=== PATIENT | female | born 1975 | race African-American/Black ===

== ENCOUNTER 2017-10-20 12:55 | Emergency (ER) | payer MEDICARE, MEDICAID ==
[~2017-10-20] VITALS: Ht 172.7 cm; Wt 85.0 kg
[~2017-10-20 12:55] MED LIST: ASPI-1158; BENAZEPRIL 5 MG PO; SIMV10TA2; SIMV20TA6 PO; TRAMADOL; [UNRECOGNIZED DRUG - CODE]
[2017-10-20] MEDS ORDERED: KETOROLAC 60MG/2ML VIAL IM ONE (14:30)
[2017-10-20 14:36] VITALS: BP 133/89
[2017-10-20 14:47] LABS: CLARITY URINE CLEAR (CLEAR); COLOR URINE YELLOW (YELLOW); KETONES URINE TRACE (NEGATIVE); LEUKOCYTE ESTERASE URINE NEGATIVE (NEGATIVE); NITRITE URINE NEGATIVE (NEGATIVE); OCCULT BLOOD URINE NEGATIVE (NEGATIVE); PH URINE 6.5 (4.5-8.0); PROTEIN URINE NEGATIVE (NEGATIVE); SPECIFIC GRAVITY URINE 1.026 (1.005-1.030); UROBILINOGEN URINE 0.2 E.U./dL (0.2-1.0)
== END 2017-10-20 15:22 | disposition home or self-care (01) ==
LOC: ER 13:18
DX: M54.5 Low back pain (principal); G89.29 Other chronic pain; I10 Essential (primary) hypertension; F12.10 Cannabis abuse, uncomplicated; Z79.82 Long term (current) use of aspirin
CPT/HCPCS: 81003; 81025; 96372; 99283; J1885

== ENCOUNTER 2017-10-24 09:20 | Emergency (ER) | payer MEDICARE, MEDICAID ==
[~2017-10-24] VITALS: Ht 167.6 cm; Wt 80.0 kg
[2017-10-24] MEDS ORDERED: KETOROLAC 60MG/2ML VIAL IM ONE (10:00)
[2017-10-24] MEDS ORDERED: ACETAMINOPHEN 325MG TABLET PO ONE (12:45)
[2017-10-24 15:04] VITALS: BP 161/76
== END 2017-10-24 15:13 | disposition home or self-care (01) ==
LOC: ER 10:23
DX: M54.5 Low back pain (principal); I10 Essential (primary) hypertension; G89.29 Other chronic pain; F12.10 Cannabis abuse, uncomplicated; Z86.73 Personal history of transient ischemic attack (TIA), and cerebral infarction without residual deficits; Z79.82 Long term (current) use of aspirin
CPT/HCPCS: 96372; 99283; J1885; J7030

== ENCOUNTER 2017-10-26 08:54 | Emergency (ER) | payer MEDICARE, MEDICAID ==
[~2017-10-26] VITALS: Ht 180.3 cm; Wt 80.0 kg
[2017-10-26 08:57] VITALS: BP 150/96
[2017-10-26] MEDS ORDERED: CYCLOBENZAPRINE 10MG TABLET PO ONE (10:00)
[2017-10-26] MEDS ORDERED: ACETAMINOPHEN 500MG TABLET PO ONE (10:00)
[2017-10-26] MEDS ORDERED: DEXAMETHASONE 10 MG/ML VIAL IM ONE (10:00)
== END 2017-10-26 11:45 | disposition home or self-care (01) ==
LOC: ER 09:16
DX: M54.41 Lumbago with sciatica, right side (principal); I10 Essential (primary) hypertension; F12.10 Cannabis abuse, uncomplicated; Z79.82 Long term (current) use of aspirin; Z86.73 Personal history of transient ischemic attack (TIA), and cerebral infarction without residual deficits
CPT/HCPCS: 96372; 99283; J1100